=== PATIENT | female | born 1995 | race Two or more races ===

== ENCOUNTER 2020-09-20 13:09 | Emergency (ER) | payer MEDICAID, SELFPAY ==
[2020-09-20 13:14] VITALS: BP 143/67; PULSE 107; RESP 18; TEMP 36.8; O2SAT 100; BMI 41.5
[2020-09-20 13:59] LABS: Glucose Urine UA NEG (NEG); Leukocyte Esterase Urine NEG (NEG); Nitrite Urine NEG (NEG); Specific Gravity - Urine 1.025 (1.005-1.025); Urine Blood NEG (NEG); Urine Ketones NEG (NEG); Urine Protein NEG (NEG-TRACE)
[2020-09-20 14:00] LABS: Appearance Urine HAZY; Color Urine YELLOW
[2020-09-20 14:01] LABS: UPreg QC Valid YES; Urine Pregnancy POSITIVE (NEGATIVE)
== END 2020-09-20 17:54 | disposition left against medical advice (07) ==
PROVIDERS: Emergency Provider Emergency Medicine
DX: O26.891 Other specified pregnancy related conditions, first trimester (principal); R10.9 Unspecified abdominal pain; Z3A.01 Less than 8 weeks gestation of pregnancy
CPT/HCPCS: 81003; 81025; 99282; 99283

== ENCOUNTER → 2020-10-17 09:11 | Outpatient (BNVA) | payer MEDICAID, SELFPAY | PROVIDERS: Visit Provider Advanced Practice Midwife | DX: O09.299 Supervision of pregnancy with other poor reproductive or obstetric history, unspecified trimester (principal); O99.210 Obesity complicating pregnancy, unspecified trimester; E66.01 Morbid (severe) obesity due to excess calories; Z98.891 History of uterine scar from previous surgery | CPT/HCPCS: 81025; 99202 ==

== ENCOUNTER 2020-10-21 10:04 | Outpatient (REF) | payer MEDICAID, SELFPAY ==
--- NOTE | ~2020-10-21 | US_ITS ---
EXAMINATION: OBSTETRICAL ULTRASOUND, FIRST TRIMESTER HISTORY: 25-year-old with the uncertain LMP Morbid obesity LMP: 07/31/2020 COMPARISON: None TECHNIQUE: Real time transabdominal imaging with color and M-mode Doppler. FINDINGS: A single, live IUP CRL of 31.6 mm c/w 10.1wks is noted. Heart Rate: 163 beats per minute. Both maternal ovaries are seen and appear normal. GESTATIONAL AGE: 1. GA from LMP: 11.5 wks 2. GA from AUA: 10.1 wks ESTIMATED DATE OF DELIVERY: 1. JUAN ANTONIO from LMP: The 05/07/2021 2. JUAN ANTONIO from AUA: 05/18/2020 US/US OB <= 14 weeks fetus IMPRESSION: This is a mina gestation. CRL is consistent with the 10.1 weeks of gestation. There is 11 day discrepancy compared to her LMP based gestational age. I recommend adjusting her JUAN ANTONIO to 05/18/2021 based on today's examination. She is scheduled for nuchal translucency evaluation in approximately 2 weeks. Thank you very much for this referral. This note was generated with a voice recognition program. Please excuse any errors which may have been overlooked during my review of this note. Sometimes these errors may affect the content or meaning of a given sentence.
== END 2020-10-21 10:05 | disposition home or self-care (01) ==
LOC: HO.US 10:04
PROVIDERS: Visit Provider Advanced Practice Midwife
DX: Z36.82 Encounter for antenatal screening for nuchal translucency (principal); O99.211 Obesity complicating pregnancy, first trimester; E66.01 Morbid (severe) obesity due to excess calories; Z3A.10 10 weeks gestation of pregnancy
CPT/HCPCS: 76801

== ENCOUNTER 2020-10-27 10:04 | Outpatient (REF) | payer MEDICAID, SELFPAY | END 2020-10-27 10:05 | disposition home or self-care (01) | LOC: HO.LAB 10:04 | PROVIDERS: Visit Provider Advanced Practice Midwife | DX: O26.891 Other specified pregnancy related conditions, first trimester (principal); R30.0 Dysuria; O09.291 Supervision of pregnancy with other poor reproductive or obstetric history, first trimester; O34.219 Maternal care for unspecified type scar from previous cesarean delivery; Z3A.11 11 weeks gestation of pregnancy | CPT/HCPCS: 87086; 99212 ==

== ENCOUNTER 2020-11-01 08:57 | Outpatient (REF) | payer MEDICAID, SELFPAY ==
[2020-11-01 14:02] LABS: CT PCR NOT DETECTED (Not Detect.); NG PCR NOT DETECTED (Not Detect.)
[2020-11-02 09:11] LABS: BV Int Neg Control Negative (Negative); BV Int Pos Control Positive (Positive)
== END 2020-11-01 08:58 | disposition home or self-care (01) ==
LOC: HO.LAB 08:57
PROVIDERS: Visit Provider Advanced Practice Midwife
DX: Z01.419 Encounter for gynecological examination (general) (routine) without abnormal findings (principal); O26.899 Other specified pregnancy related conditions, unspecified trimester; O99.211 Obesity complicating pregnancy, first trimester; O09.299 Supervision of pregnancy with other poor reproductive or obstetric history, unspecified trimester; R30.0 Dysuria; E66.01 Morbid (severe) obesity due to excess calories; K08.89 Other specified disorders of teeth and supporting structures; Z3A.11 11 weeks gestation of pregnancy; Z79.899 Other long term (current) drug therapy; Z79.2 Long term (current) use of antibiotics; Z98.891 History of uterine scar from previous surgery; Z20.2 Contact with and (suspected) exposure to infections with a predominantly sexual mode of transmission
CPT/HCPCS: 81003; 87480; 87491; 87510; 87591; 87660; 88142; 99212

== ENCOUNTER 2020-11-04 09:58 | Outpatient (REF) | payer MEDICAID, SELFPAY ==
--- NOTE | ~2020-11-04 | US_ITS ---
EXAMINATION: OBSTETRICAL ULTRASOUND, FIRST TRIMESTER HISTORY: 25-year-old at the 12.1 weeks of gestation NT screening COMPARISON: 10/21/2020 TECHNIQUE: Real time transabdominal imaging with color and M-mode Doppler. FINDINGS: A single, live IUP CRL of 47.7 mm c/w 11.4wks is noted. Heart Rate: 163 beats per minute. Normal yolk sac seen. NT was 1.1.mm. NB Present The embryo appears sonographically wnl for this GA. Unable to visualize the ovaries due to bowel gas. GESTATIONAL AGE: 1. Established GA: 12.1 wks 2. GA from AUA: 11.4 wks ESTIMATED DATE OF DELIVERY: 1. Established JUAN ANTONIO: 05/18/2021 2. JUAN ANTONIO from AUA: 05/22/2021 US/US OB 1T nuc measure IMPRESSION: 1. A single live IUP 2. Size equals dates 3. NT of 1.1 mm MFM Consultation: I reviewed the ultrasound findings along with significance of NT measurement. The NT of less than 3mm is generally reassuring. However, the sensitivity for T21 detection is only 60%. I reviewed the availability of serum aneuploidy screening which includes cell-free DNA and placental protein based tests. I discussed the sensitivity, false-positive rate, and other limitations associated with each test. I also reviewed the availability of invasive diagnostic tests that are associated small but definite risk of miscarriage. We also reviewed the differences between screening tests and diagnostic tests. After our discussion, she opted for the First trimester screening that is based on cell-free DNA or non-invasive testing (NIPT). The result will be faxed to your office in approximately 7 days. A follow up at 18 weeks for survey has been scheduled. Thank you very much for this referral. Total time 20 minutes. The time spent was devoted to counseling the patient about the disease and diagnosis, coordinating care including reviewing her records, pertinent lab data and studies, as well as discussing diagnostic evaluation and workup, plan therapeutic interventions and future disposition of care. This includes any additional research needed to obtain further information in formulating the plan of care of this patient. This note was generated with a voice recognition program. Please excuse any errors which may have been overlooked during my review of this note. Sometimes these errors may affect the content or meaning of a given sentence.
== END 2020-11-04 09:59 | disposition home or self-care (01) ==
LOC: HO.US 09:58
PROVIDERS: Visit Provider Advanced Practice Midwife
DX: O99.210 Obesity complicating pregnancy, unspecified trimester (principal); E66.01 Morbid (severe) obesity due to excess calories
CPT/HCPCS: 76813

== ENCOUNTER 2020-11-25 08:55 | Outpatient (REF) | payer MEDICAID, SELFPAY ==
[2020-11-25 11:11] LABS: Hematocrit 33.7 % (37-47); Hemoglobin 11.2 g/dl (12.0-16.0); Mean Corpuscular HGB Conc 33.2 g/dl (31.0-35.0); Mean Corpuscular Volume 90.3 fL (80-98); Mean Platelet Volume 10.2 fL (9.4-12.3); Platelet Count 236 X10*3/uL (160-400); Red Blood Count 3.73 X10*6/uL (4.20-5.50); Red Cell Distribution Width 12.8 % (11.0-16.0); White Blood Count 6.9 X10*3/uL (4.8-10.8)
[2020-11-25 12:01] LABS: Alanine Aminotransferase 14 U/L (0-31); Aspartate Amino Transferase 20 U/L (5-31); Glucose 1 Hour PP 50gm Dose 126 mg/dL (60-140); Uric Acid 4.8 mg/dL (2.4-5.7)
[2020-11-25 12:05] LABS: Amphetamine Screen Urine Not Detected (Not Detect); Barbiturates, Urine Not Detected (Not Detect); Benzodiazepines Screen Urine Not Detected (Not Detect); Cannabinoid Screen Urine Not Detected (Not Detect); Cocaine Screen Urine Not Detected (Not Detect); Opiate Screen Urine Not Detected (Not Detect); Phencyclidine Screen Urine Not Detected (Not Detect)
[2020-11-25 12:07] LABS: Syphilis Screen Nonreactive (Nonreactive)
[2020-11-25 12:09] LABS: Creatinine Urine 83.66 mg/dL; Total Protein Urine Random < 7 mg/dL (<12)
[2020-11-26 09:06] LABS: Rubella IgG Antibody 1.89 Index
[2020-11-28 08:25] LABS: HBsAGNum1 0.25 S/CO (0.00-0.99); HIV AB/AG Nonreactive (Nonreactive); HIV Num 1 0.05 S/CO (0.00-0.99); Hepatitis B Surface Antigen Negative (Negative)
[2020-11-28 08:30] LABS: ~HepC Num1 0.19 S/CO (0.00-0.79); ~Hepatitis C Antibody Nonreactive (Nonreactive)
== END 2020-11-25 08:56 | disposition home or self-care (01) ==
LOC: HO.LAB 08:55
PROVIDERS: Visit Provider Obstetrics & Gynecology
DX: O09.299 Supervision of pregnancy with other poor reproductive or obstetric history, unspecified trimester (principal); O99.210 Obesity complicating pregnancy, unspecified trimester; E66.01 Morbid (severe) obesity due to excess calories
CPT/HCPCS: 80307; 84156; 84450; 84460; 84550; 85027; 86762; 86780; 86787; 86803; 86850; 86900; 86901; 87340; 87389

== ENCOUNTER → 2020-11-29 11:17 | Outpatient (BNVA) | payer MEDICAID, SELFPAY | PROVIDERS: Visit Provider Obstetrics & Gynecology | DX: Z34.91 Encounter for supervision of normal pregnancy, unspecified, first trimester (principal); Z3A.15 15 weeks gestation of pregnancy | CPT/HCPCS: 99212 ==

== ENCOUNTER 2020-12-23 08:57 | Outpatient (REF) | payer MEDICAID, SELFPAY ==
--- NOTE | ~2020-12-23 | US_ITS ---
EXAMINATION: US OBSTETRICAL CLINICAL INFORMATION: A 25-year-old at 19.1 weeks of gestation Insufficient care Screening for anomaly High BMI COMPARISON: None TECHNIQUE: Real-time transabdominal ultrasound was performed using C1-5 megahertz transducer. FINDINGS: A single, active, fetus is seen in vertex presentation. The placenta is anterior without previa, and the amniotic fluid volume is wnl. MEASUREMENTS: 1. Biparietal Diameter: 4.0 cm; 18.2 wks 2. Occipital Frontal Diameter: 5.7 cm 3. Head Circumference: 15.6 cm; 18.4 wks 4. Abdominal Circumference: 14.0 cm; 19.3 wks 5. Femur Length: 3.0 cm; 19.2 wks 6. Humerus Length: 2.7 cm; 18.4 wks 7. Tibia Length: 2.5 cm; 18.6 wks 8. Ulna Length: 2.5 cm; 19.0 wks 9. Lateral ventricle: 0.7 cm 10. Cerebellum: 1.9 cm; 19.2 wks 11. Cisterna Magna: 0.3 cm 12. Nuchal Fold: 2.5 mm 13. Heart Rate: 144 beats per minute Rt ovary: normal Lt ovary: normal Cervical length 3.9 cm on T/A. GESTATIONAL AGE: 1. Established GA: 19.1 wks 2. GA from [facility]: 19.0 wks ESTIMATED DATE OF DELIVERY: 1. Established JUAN ANTONIO: 05/18/2021 2. JUAN ANTONIO from [facility]: 05/19/2021 ANATOMY: The views of the cardiac and spine were suboptimal due to position. The visualized anatomy includes but not limited to: 1. Cranium: Normal 2. Intracranial anatomy: cavum septum pellucidi, lateral ventricles, choroid plexus, cerebellum, posterior fossa, third and fourth ventricles. 3. face: orbits, lip/palate, profile, nasal bone 4. Heart: Suboptimal. 5. Diaphragm: Normal 6. Abdominal wall: Normal 7. Cord Insertion: Normal 8. Spine: Suboptimal 9. Stomach: Normal size and shape 10. Right Kidney: Normal 11. Left Kidney: Normal 12. 3 vessel cord: Normal 13. Upper extremity: Open hands, fifth digit. 14. Lower extremity: Tibia, fibula, bilateral feet. 15. Bladder: Normal 16. Genitalia: Female, patient aware US/US OB /maternal detail IMPRESSION: 1. Single, living, intrauterine with appropriate biometry. 2. Limited views of the heart and spine due to position. No abnormalities were seen in visualized anatomy. DISCUSSION: I reviewed today's ultrasound findings. We discussed the limitations of ultrasound in diagnosing aneuploidy and other congenital abnormalities. I reviewed the differences between screening test and diagnostic test. Amniocentesis was discussed and declined. She was informed that the baseline incidence of congenital abnormalities is approximately 3-5%. Not all these conditions are diagnosable in utero. RECOMMENDATIONS: 1. She is scheduled for a follow-up evaluation in 2 weeks. Thank you for allowing me to participate in her care. Total time 30 minutes. The time spent was devoted to counseling the patient about the disease and diagnosis, coordinating care including reviewing her records, pertinent lab data and studies, as well as discussing diagnostic evaluation and workup, plan therapeutic interventions and future disposition of care. This includes any additional research needed to obtain further information in formulating the plan of care of this patient. This note was generated with a voice recognition program. Please excuse any errors which may have been overlooked during my review of this note. Sometimes these errors may affect the content or meaning of a given sentence.
== END 2020-12-23 08:58 | disposition home or self-care (01) ==
LOC: HO.US 08:57
PROVIDERS: Visit Provider Advanced Practice Midwife
DX: Z34.92 Encounter for supervision of normal pregnancy, unspecified, second trimester (principal); Z36.3 Encounter for antenatal screening for malformations
CPT/HCPCS: 76811

== ENCOUNTER 2021-01-06 10:32 | Outpatient (REF) | payer MEDICAID, SELFPAY ==
--- NOTE | ~2021-01-06 | US_ITS ---
EXAMINATION: OBSTETRICAL ULTRASOUND, Follow up HISTORY: 25-year-old at the 21.1 weeks of gestation Incomplete survey History of preeclampsia COMPARISON: 12/23/2020 TECHNIQUE: Real time transabdominal imaging with color and M-mode Doppler. PRESENTATION: Breech PLACENTA LOCATION: Anterior without previa AMNIOTIC FLUID: Normal MEASUREMENTS: 1. Biparietal Diameter: 4.6 cm; 20.1 wks 2. Head Circumference: 18.1 cm; 20.4 wks 3. Abdominal Circumference: 15.7 cm; 21.0 wks 4. Femur Length: 3.3 cm; 20.2 wks 5. Heart Rate: 148 beats per minute WEIGHT: Estimated weight is 316 grams (0 lbs 13 oz) -- 17 %. Normal views of lateral cerebral ventricle, profile, nose/lips, 4ch view, LVOT, RVOT, three-vessel view, 3 vessel trachea view, ductal and aortic arches, diaphragm, situs as well as spine. GESTATIONAL AGE: 1. Established GA: 21.1 wks 2. GA from AUA: 20.4 wks ESTIMATED DATE OF DELIVERY: 1. Established JUAN ANTONIO: 05/18/2021 2. JUAN ANTONIO from AUA: 05/22/2021 US/US OB follow up IMPRESSION: 1. A single fetus with appropriate interval growth. 2. Previously limited views of the anatomy were seen as listed above. No abnormalities were noted in visualized anatomy. 3. This completes the survey. I reviewed the limitations of ultrasound in diagnosing aneuploidy and other congenital abnormalities. Amniocentesis was again reviewed and she declined. She was informed that the baseline instance of congenital abnormalities and defects in the general population is approximately 3-5%. Not all these conditions are diagnosable in utero. RECOMMENDATIONS: 1. f/u PRN Thank you very much for this referral. This note was generated with a voice recognition program. Please excuse any errors which may have been overlooked during my review of this note. Sometimes these errors may affect the content or meaning of a given sentence.
== END 2021-01-06 10:33 | disposition home or self-care (01) ==
LOC: HO.US 10:32
PROVIDERS: Visit Provider Advanced Practice Midwife
DX: O09.292 Supervision of pregnancy with other poor reproductive or obstetric history, second trimester (principal); Z3A.21 21 weeks gestation of pregnancy; Z87.59 Personal history of other complications of pregnancy, childbirth and the puerperium
CPT/HCPCS: 76816

== ENCOUNTER → 2021-01-17 15:16 | Outpatient (BNVA) | payer MEDICAID, SELFPAY | PROVIDERS: PCP Internal Medicine; Visit Provider Advanced Practice Midwife | DX: O34.219 Maternal care for unspecified type scar from previous cesarean delivery (principal); O99.212 Obesity complicating pregnancy, second trimester; O09.292 Supervision of pregnancy with other poor reproductive or obstetric history, second trimester; Z3A.22 22 weeks gestation of pregnancy | CPT/HCPCS: 81003; 99212 ==

== ENCOUNTER → 2021-02-15 10:53 | Outpatient (BNVA) | payer MEDICAID, SELFPAY | PROVIDERS: Visit Provider Obstetrics & Gynecology | DX: O99.212 Obesity complicating pregnancy, second trimester (principal); E66.9 Obesity, unspecified; Z3A.26 26 weeks gestation of pregnancy; Z98.891 History of uterine scar from previous surgery | CPT/HCPCS: 99212 ==

== ENCOUNTER → 2021-02-22 11:02 | Outpatient (BNVA) | payer MEDICAID, SELFPAY | PROVIDERS: Visit Provider Obstetrics & Gynecology | DX: O99.212 Obesity complicating pregnancy, second trimester (principal); E66.01 Morbid (severe) obesity due to excess calories; Z98.891 History of uterine scar from previous surgery; Z3A.27 27 weeks gestation of pregnancy | CPT/HCPCS: 99212 ==

== ENCOUNTER 2021-08-02 18:10 | Emergency (ER) | payer MEDICAID, SELFPAY ==
--- NOTE | ~2021-08-02 | XR_ITS ---
EXAMINATION: XR CHEST CLINICAL INFORMATION: Dyspnea COMPARISON: None TECHNIQUE: Frontal view of the chest was obtained. FINDINGS: The lungs are mildly hypoinflated. Otherwise, no significant abnormality is noted involving the heart, lungs, mediastinum, bony thorax or soft tissues. XR/XR chest 1V IMPRESSION: No acute intrathoracic disease
[2021-08-02 18:22] VITALS: BP 138/91; PULSE 100; RESP 24; TEMP 37.3; O2SAT 100; BMI 45.8
[2021-08-02] MEDS: Albuterol/Iprat 2.5/0.5MG 3 ML AMPUL.NEB INHALE (18:35)
[2021-08-02 18:37] VITALS: PULSE 95; RESP 24; O2SAT 99
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
[2021-08-02 18:52] VITALS: PULSE 101
[2021-08-02] MEDS: EPINEPHrine 1 MG/ML VIAL 0.3 MG IM (18:52)
[2021-08-02] MEDS: diphenhydrAMINE HCL 50 MG/ML VIAL 25 MG IVPUSH (18:58)
[2021-08-02] MEDS: Famotidine/PF 20 MG/2 ML VIAL IVPUSH (18:58)
[2021-08-02] MEDS: methylPREDNISolone Sod Succ 125 MG/2 ML VIAL IVPUSH (18:58)
[2021-08-02] MEDS: predniSONE 20 MG TABLET 60 MG PO (18:59)
[2021-08-02 19:02] LABS: MANUAL DIFF FLAG NO
[2021-08-02] MEDS: 0.9 % Sodium Chloride 1,000 ML 999 ML IV (19:02)
[2021-08-02 19:04] LABS: Basophils Percent Auto 0.5 % (0-2); Eosinophils Absolute Auto 0.1 X10*3/uL (0.0-0.4); Eosinophils Percent Auto 1.3 % (0-4); Hematocrit 38.6 % (37.0-47.0); Hemoglobin 12.7 g/dl (12.0-16.0); Imm Gran Abs Auto 0.04 X10*3/uL (0.00-0.03); Imm Gran Pct Auto 0.6 % (0.0-0.4); Lymphocytes Absolute Auto 1.9 X10*3/uL (1.2-4.9); Lymphocytes Percent Auto 29.2 % (20-40); Mean Corpuscular HGB Conc 32.9 g/dl (31.0-35.0); Mean Corpuscular Hemoglobin 28.2 pg (27.0-33.0); Mean Corpuscular Volume 85.8 fL (80.0-98.0); Mean Platelet Volume 10.1 fL (9.4-12.3); Monocytes Absolute Auto 0.4 X10*3/uL (0.1-1.2); Monocytes Percent Auto 5.5 % (2-11); Neutrophils Percent Auto 62.9 % (45-73); Platelet Count 255 X10*3/uL (160-400); Red Cell Distribution Width 14.8 % (11.0-16.0); White Blood Count 6.3 X10*3/uL (4.8-10.8)
[2021-08-02 19:19] LABS: Anion Gap 14 (12-20); Blood Urea Nitrogen 10 mg/dL (9-16); Calcium 9.7 mg/dL (8.4-10.2); Carbon Dioxide 20 mmol/L (22-29); Chloride 109 mmol/L (96-108); Creatinine Clr Calc Pharmacy 137.4; Estimated Glomerular Filt Rate > 60; Glucose Random 101 mg/dL (60-115); Potassium 3.8 mmol/L (3.3-5.1); Sodium 139 mmol/L (135-145)
[2021-08-02] MEDS: Racepinephrine HCL 0.5 ML VIAL.NEB INHALE (19:21)
[2021-08-02 19:22] VITALS: PULSE 87; RESP 21; O2SAT 100
[2021-08-02 19:41] LABS: Influenza A PCR NEGATIVE (Negative); Influenza B PCR NEGATIVE (Negative); Resp Syncy Virus RNA Qual PCR NEGATIVE (Negative); SARS COV2 PCR INHOUSE NEGATIVE (Negative)
--- NOTE | 2021-08-02 19:47 | PHA.MEDREC ---
Pharmacy Consult ? Medication Reconciliation Pharmacy has completed the medication reconciliation.
[2021-08-02 20:55] VITALS: BP 134/74; PULSE 104; RESP 19; O2SAT 100
== END 2021-08-02 21:03 | disposition home or self-care (01) ==
PROVIDERS: Emergency Provider Student in an Organized Health Care Education/Training Program
DX: R06.00 Dyspnea, unspecified (principal); Z79.899 Other long term (current) drug therapy; Z20.822 Contact with and (suspected) exposure to COVID-19
CPT/HCPCS: 0241U; 71045; 80048; 85025; 94640; 96361; 96372; 96374; 96375; 99283; 99284; J0171; J1200; J2930

== ENCOUNTER 2022-02-04 23:48 | Emergency (ER) | payer MEDICAID, SELFPAY ==
[2022-02-05 00:22] VITALS: BP 132/92; PULSE 101; RESP 18; TEMP 36.7; BMI 46.0
== END 2022-02-05 07:25 | disposition left against medical advice (07) ==
PROVIDERS: Emergency Provider Emergency Medicine
DX: S09.90XA Unspecified injury of head, initial encounter (principal); W22.03XA Walked into furniture, initial encounter; Y93.89 Activity, other specified; Y92.013 Bedroom of single-family (private) house as the place of occurrence of the external cause; Y99.9 Unspecified external cause status
CPT/HCPCS: 99281

== ENCOUNTER 2022-02-05 10:17 | Emergency (ER) | payer MEDICAID, SELFPAY ==
[2022-02-05 10:50] VITALS: BP 132/86; PULSE 90; RESP 16; TEMP 35.8; O2SAT 100; BMI 46.0
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
== END 2022-02-05 12:42 | disposition home or self-care (01) ==
PROVIDERS: Emergency Provider Emergency Medicine
DX: S09.90XA Unspecified injury of head, initial encounter (principal); W22.03XA Walked into furniture, initial encounter; Y93.89 Activity, other specified; Y92.019 Unspecified place in single-family (private) house as the place of occurrence of the external cause; Y99.9 Unspecified external cause status
CPT/HCPCS: 99282

== ENCOUNTER 2023-03-17 19:36 | Emergency (ER) | payer MEDICAID, SELFPAY ==
--- NOTE | ~2023-03-17 | XR_ITS ---
EXAMINATION: XR MANDIBLE CLINICAL INFORMATION: Low suspicion mandible dislocation on left COMPARISON: None available. TECHNIQUE: 4 views of the mandible were obtained. FINDINGS: Temporomandibular joint alignment is suspected to the anatomic bilaterally, though assessment on some views is suboptimal. No acute fracture is seen. Paranasal sinuses and mastoid air cells appear well-aerated. XR/XR mandible <4V IMPRESSION: Temporomandibular joint alignment suspected to be anatomic bilaterally. If clinical concern remains, this could be more definitively assessed with CT.
[2023-03-17 19:59] VITALS: BP 116/78; PULSE 82; RESP 16; TEMP 36.4; O2SAT 98; BMI 44.9
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
--- OUTSIDE RECORDS SUMMARY | 2023-03-18 00:26 | XMS_ITS | Continuity of Care Document ---
Author Name Unknown Organization [facility] Address [address] [place] [id number]- Care Team Providers Care Care Program Resident Name Role Phone Not on Staff, PCP Primary Care Physician Unavail able Encounter [facility] Date(s): 10/11/20 - 11/10/20 [facility] [place] [address] [address]-
--- OUTSIDE RECORDS SUMMARY | 2023-03-18 00:26 | XMS_ITS | Continuity of Care Document ---
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 Start Date: 04/25/21 Status: Ordered Ferrous Sulfate EC Refills 0, Maintenance, 04/25/21 20:56:00 EST, Partial fill upon patient request if the prescription is for a schedule II opioid drug. Start Date: 04/25/21 Status: Ordered ibuprofen 600 mg oral tablet 600 mg, 1, tablet, By Mouth, 4 times a day, # 40 tablet, Refills 0, Tot. Refills 0, Maintenance, 04/28/21 5:29:00 EST, Route to Pharmacy Electronically, [facility] #[id number], Partial fill uponpatient request if the prescription is for a schedu... Start Date: 04/28/21 Status: Ordered MiraLax oral powder for reconstitution = 17 Gm, By Mouth, Daily, dissolve in water before taking, # 255 Gm, 0 Refills, Maintenance, 04/28/21 5:29:00 EST, REC Powder, [facility] #[id number], Partial fill upon patient request if the prescription is for a schedule II opioid drug., 17 Gm... Start Date: 04/28/21 Status: Ordered Multivitamins By Mouth, Daily, 0 Refills, Maintenance, 02/05/21 5:31:00 EDT, Partial fill upon patient request ifthe prescription is for a schedule II opioid drug. Start Date: 02/05/21 Status: Ordered Tylenol 325 mg oral tablet 650 mg, 2, tablet, By Mouth, Every 4 hours, PRN, # 40 tablet, Refills 0, Tot. Refills 0, Maintenance, for pain, 04/28/21 5:29:00 EST, Route to Pharmacy Electronically, [facility] #[id number], Partial fill upon patient request if the prescription... Start Date: 04/28/21 Status: Ordered Problem List Condition Effective Dates Status Health Status Inform ant Chlamydia(Confirmed) 2013 Active Severe obesity(Confirmed) Active Social History Social History Type Response Smoking Status Never (less than 100 in lifetime) entered on: 02/05/21 Sex
--- OUTSIDE RECORDS SUMMARY | 2023-03-18 00:26 | XMS_ITS | Continuity of Care Document ---
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
--- OUTSIDE RECORDS SUMMARY | 2023-03-18 00:26 | XMS_ITS | Continuity of Care Document ---
Author Name Unknown Organization [facility] ter Address [address] [place] [address]- Care Team Providers Care Clinical Rehab Liaison Name Role Phone Not on Staff, PCP Primary Care Physician Unavail able Encounter [facility] Date(s): 04/25/21 - 04/28/[address] [address] Discharge Disposition: A-D/C Home Attending Physician: Symone Kinney MD Admitting Physician: Symone Kinney MD Referring Physician: Symone Kinney MD Allergies, Adverse Reactions, Alerts Substance Reaction Severity [...] 04/28/21 5:29:00 EST, Route to Pharmacy Electronically, [facility] #[id number], Partial fill uponpatient request if the prescription is for a schedu... Start Date: 04/28/21 Status: Ordered MiraLax oral powder for reconstitution = 17 Gm, By Mouth, Daily, dissolve in water before taking, # 255 Gm, 0 Refills, Maintenance, 04/28/21 5:29:00 EST, REC Powder, [facility] #[id number], Partial fill upon patient request if the prescription is for a schedule II opioid drug., 17 Gm... Start Date: 04/28/21 Status: Ordered oxyCODONE 5 mg oral tablet 5 mg, 1, tablet, By Mouth, Every 6 hours, PRN, # 15 tablet, Refills 0, Tot. Refills 0, Acute 05/13/21 5:29:00 EST, as needed for pain, 04/28/21 5:29:00 EST, Route to Pharmacy Electronically, [facility] #[id number], Partial fill upon patient reque... Start Date: 04/28/21 Stop Date: 05/13/21 Status: Ordered OxyCODONE IR Tablet 5 mg, Tablet, By Mouth, Every 3 hours, PRN for Pain , Severe, (7-10), Routine, 04/27/21 4:47:00 EST Start Date: 04/27/21 Stop Date: 04/28/21 Status: Discontinued Multivitamins By Mouth, Daily, 0 Refills, Maintenance, 02/05/21 5:31:00 EDT, Partial fill upon patient request ifthe prescription is for a schedule II opioid drug. Start Date: 02/05/21 Status: Ordered simethicone 125 mg oral capsule 1 capsule = 125 mg, By Mouth, 4 times a day, # 80 capsule, 0 Refills, Acute 05/27/21 5:29:00 EST, 04/28/21 5:29:00 EST, Capsule, [facility] #[id number], Partial fill upon patient request if the prescription is for a schedule II opioid drug., 153,... Start Date: 04/28/21 Stop Date: 05/27/21 Status: Ordered Tylenol 325 mg oral tablet 650 mg, 2, tablet, By Mouth, Every 4 hours, PRN, # 40 tablet, Refills 0, Tot. Refills 0, Maintenance, for pain, 04/28/21 5:29:00 EST, Route to Pharmacy Electronically, [facility] #[id number], Partial fill upon patient request if the prescription... Start Date: 04/28/21 Status: Ordered Problem List Condition Effective Dates Status Health Status Inform ant Chlamydia(Confirmed) 2014 Active Severe obesity(Confirmed) Active Procedures Procedure Date Related Diagnosis Body Site Status delivery only; 04/26/21 C ompleted Vital Signs Most recent to oldest [Reference Range]: 1 2 3 Height 153 cm (04/28/21 8:45 AM) 153 cm (04/28/21 12:01 AM) 153 cm (04/27/21 4:29 PM) Weight 116.8 kg (04/26/21 1:52 AM) 115.8 kg (04/25/21 8:35 PM) Oxygen Saturation [94-100 %] 97 % (04/28/21 8:45 AM) 96 % (04/28/21 12:01 AM) 95 % (04/27/21 4:29 PM) Pulse Rate [55-90 bpm] 100 bpm *H* (04/28/21 8:45 AM) 108 bpm *H* (04/28/21 12:01 AM) 110 bpm *H* (04/27/21 4:29 PM) Body Mass Index [18.5-24.99] 49.9 *>HHI* (04/26/21 1:52 AM) Blood Pressure [90-138/55-84 mm Hg] 121/77mm Hg (04/28/21 8:45 AM) 121/77mm Hg (04/28/21 12:01 AM) 121/62mm Hg (04/27/21 4:29 PM) Respiratory Rate [16-30 br/min] 18 br/min (04/28/21 11:11 AM) 20 br/min (04/28/21 8:45 AM) 18 br/min (04/28/21 6:19 AM) Temperature [96.8-100.4 DegF] 98.1 DegF (04/28/21 8:45 AM) 99.2 DegF (04/28/21 12:01 AM) 97.7 DegF (04/27/21 4:29 PM) Mode of Delivery (Oxygen) Room air (04/28/21 8:45 AM) Room air (04/28/21 12:01 AM) Room air (04/27/21 12:00 PM) Blood pressure sites Arm, left (04/28/21 8:45 AM) Arm, right (04/28/21 12:01 AM) Arm, left (04/27/21 12:00 PM) Temperature Route Oral (04/28/21 8:45 AM) Oral (04/28/21 12:01 AM) Oral (04/27/21 4:29 PM) Dry Weight 116.8 kg (04/26/21 1:52 AM) 115.8 kg (04/25/21 8:35 PM) Weight Obtained Via Standing scale (04/25/21 8:35 PM) Dry Weight Obtained Via Standing scale (04/25/21 8:35 PM) Social History Social History Type Response Smoking Status Never (less than 100 in lifetime) entered on: 02/05/21 Sex
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
[2023-03-18 00:59] VITALS: BP 99/60; PULSE 77; RESP 16; O2SAT 99
== END 2023-03-18 01:02 | disposition home or self-care (01) ==
PROVIDERS: Emergency Provider Internal Medicine
DX: M26.602 Left temporomandibular joint disorder, unspecified (principal)
CPT/HCPCS: 70100; 99283; 99284

== ENCOUNTER 2023-06-21 01:07 | Emergency (ER) | payer MEDICAID, SELFPAY ==
--- NOTE | ~2023-06-21 | XR_ITS ---
EXAMINATION: XR CHEST CLINICAL INFORMATION: Shortness of breath with cough COMPARISON: 08/02/2021 TECHNIQUE: Frontal view of the chest was obtained. FINDINGS: The lungs are clear with no focal consolidation. No evidence of pneumothorax, pulmonary edema, or pleural effusions. The cardiomediastinal silhouette is unremarkable. No acute osseous findings. XR/XR chest 1V IMPRESSION: No acute cardiopulmonary findings.
[2023-06-21 01:26] VITALS: BP 132/85; PULSE 89; RESP 18; TEMP 36.6; O2SAT 100; BMI 44.3
[2023-06-21 01:59] LABS: IDNOW Serial# 6674DD1D; Strep A Nucleic Acid Negative (Negative)
[2023-06-21 02:32] LABS: Influenza A PCR NEGATIVE (Negative); Influenza B PCR NEGATIVE (Negative); Resp Syncy Virus RNA Qual PCR NEGATIVE (Negative); SARS COV2 PCR INHOUSE POSITIVE (Negative)
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
[2023-06-21] MEDS: Benzonatate 100 MG CAPSULE 200 MG PO (04:15)
[2023-06-21] MEDS: Ibuprofen 600 MG TABLET PO (04:16)
[2023-06-21 04:20] VITALS: BP 122/72; PULSE 70; RESP 16; TEMP 36.6; O2SAT 99
== END 2023-06-21 04:24 | disposition home or self-care (01) ==
PROVIDERS: Emergency Provider Internal Medicine
DX: U07.1 COVID-19 (principal); J02.9 Acute pharyngitis, unspecified; Z20.828 Contact with and (suspected) exposure to other viral communicable diseases
CPT/HCPCS: 0241U; 71045; 87651; 99283